=== PATIENT | male | born 1995 | race Caucasian/White ===

== ENCOUNTER 2016-05-10 23:03 | Emergency (ER) | payer MEDICAID | END 2016-05-10 23:25 | disposition home or self-care (01) | LOC: D.ER 23:03 | DX: F41.9 Anxiety disorder, unspecified (principal) ==

== ENCOUNTER 2016-07-19 13:41 | Emergency (ER) | payer MEDICAID | END 2016-07-19 14:36 | disposition home or self-care (01) | LOC: D.ER 13:41 | DX: M54.9 Dorsalgia, unspecified (principal); G89.29 Other chronic pain; F17.200 Nicotine dependence, unspecified, uncomplicated ==

== ENCOUNTER 2018-09-06 16:24 | Emergency (ER) | payer MEDICAID ==
[~2018-09-06] VITALS: Ht 180.3 cm; Wt 110.9 kg
[2018-09-06 16:36] VITALS: Ht 180.3 cm; Wt 110.9 kg
[2018-09-06] MEDS ORDERED: VIBRAMYCIN 100100 MG PO (19:32)
[2018-09-06] MEDS ORDERED: TORADOL10 MG PO (19:32)
[2018-09-06 19:52] VITALS: BP 139/74
== END 2018-09-06 19:52 | disposition home or self-care (01) ==
LOC: D.ER 16:24
DX: L02.414 Cutaneous abscess of left upper limb (principal)

== ENCOUNTER 2018-09-08 16:44 | Inpatient (IN) | payer MEDICAID ==
[~2018-09-08] VITALS: Ht 180.3 cm; Wt 110.5 kg
[~2018-09-08 16:44] MED LIST: TORADOL10 MG PO; VIBRAMYCIN 100100 MG PO
[2018-09-08 22:07] VITALS: BP 152/80
[2018-09-08 22:15] LABS: BASOPHILS 0.1 % (0-2); EOSINOPHILS 1.3 % (0-7); HEMATOCRIT 42.1 % (42.0-54.0); HEMOGLOBIN 15.1 g/dL (13.5-17.5); IMMATURE GRANULOCYTES 0.2 % (0-5); MCH 31.9 pg (26.0-34.0); MCHC 35.9 g/dL (31.0-37.0); MCV 88.8 fL (80.0-100.0); MEAN PLATELET VOLUME 11.1 fL (7.4-10.4); MONOCYTES 7.9 % (2-11); NEUTROPHILS 73.5 % (40-80); PLATELET COUNT 196 10x3/uL (130-400); RBC 4.74 10x6/uL (4.20-6.10); RDW 12.3 % (11.5-14.5); WBC 10.9 10x3/uL (4.8-10.8)
[2018-09-08 22:29] LABS: CALC OSMOLALITY 278 mosm/kg (275-300); CALCIUM 9.1 mg/dL (8.5-10.1); CARBON DIOXIDE 28.6 mmol/L (21.0-32.0); CHLORIDE - SERUM 104 mmol/L (98-107); CREATININE - SERUM 0.8 mg/dL (0.6-1.3); GLUCOSE 83 mg/dL (74-106); POTASSIUM - SERUM 4.1 mmol/L (3.5-5.1); SODIUM 140 mmol/L (136-145); UREA NITROGEN 15 mg/dL (7-18); eGFR NON AFRICAN AMERICAN > 90 mL/min (90-120)
--- NOTE | 2018-09-08 23:15 | NUR ---
PT ARRIVED TO [place] WITH HOSPITAL STAFF. PT ALERT AND ORIENTED.
[2018-09-09] VITALS (7 sets, daily range): BP systolic 105–173; BP diastolic 53–94; Ht 180.3 cm; Wt 110.5 kg
--- NOTE | 2018-09-09 00:30 | NUR ---
PT HAS SMALL DRAINAGED FROM LEFT FOREARM, 4X4 APPLIED TO DRAINAGED AREA.
--- NOTE | 2018-09-09 02:43 | NUR ---
REST IN BED. EYE CLOSE. CALL LIGHT IN REACH.
--- NOTE | 2018-09-09 09:00 | NUR ---
ASSESSMENT PER FLOW SHEET. PT IS WITHOUT DISTRESS.MONITOR FOR NEEDS
--- NOTE | 2018-09-09 09:15 | NUR ---
IV RIGHT UPPER ARM HURTING AND PT WANTED IT MOVED.IV DCD WITH CATH TIP INTACT.IV RESITED TO RIGHT HAND X1 STICK,20G USING ASEPTIC TECH.
--- NOTE | 2018-09-09 18:55 | NUR ---
REMAINS WITHOUT CHANGE.CONT PLAN OF CARE
--- NOTE | 2018-09-09 19:30 | NUR ---
SUPINE IN BED, A&O X 4. REPORTS MILD PAIN, BUT DENIES NEED FOR PAIN MEDICATION. DRESSING TO LEFT UPPER FOREARM C/D/I. PT IS AMBULATORY. WILL CONTINUE TO MONITOR.
[2018-09-10 00:58] VITALS: BP 146/59
--- NOTE | 2018-09-10 03:27 | NUR ---
I have reviewed this patient and I concur with the Shift Assessment completed by the Licensed Practical Nurse today this shift.
[2018-09-10 04:54] VITALS: BP 140/84
[2018-09-10 06:31] LABS: BASOPHILS 0.1 % (0-2); HEMATOCRIT 40.7 % (42.0-54.0); HEMOGLOBIN 14.2 g/dL (13.5-17.5); IMMATURE GRANULOCYTES 0.3 % (0-5); LYMPHOCYTES 33.8 % (15-50); MCH 31.1 pg (26.0-34.0); MCHC 34.9 g/dL (31.0-37.0); MCV 89.3 fL (80.0-100.0); MEAN PLATELET VOLUME 11.5 fL (7.4-10.4); MONOCYTES 9.1 % (2-11); NEUTROPHILS 52.7 % (40-80); PLATELET COUNT 167 10x3/uL (130-400); RBC 4.56 10x6/uL (4.20-6.10); RDW 12.3 % (11.5-14.5)
[2018-09-10 06:42] LABS: WBC 6.7 10x3/uL (4.8-10.8)
[2018-09-10 06:59] LABS: CALC OSMOLALITY 279 mosm/kg (275-300); CALCIUM 8.4 mg/dL (8.5-10.1); CARBON DIOXIDE 26.8 mmol/L (21.0-32.0); CHLORIDE - SERUM 105 mmol/L (98-107); GLUCOSE 101 mg/dL (74-106); POTASSIUM - SERUM 3.6 mmol/L (3.5-5.1); SODIUM 140 mmol/L (136-145); UREA NITROGEN 14 mg/dL (7-18); eGFR NON AFRICAN AMERICAN > 90 mL/min (90-120)
--- NOTE | 2018-09-10 08:50 | HP ---
PATIENT: AJ HERNANDES MEDICAL RECORD: [id number] ACCOUNT: [id number] LOCATION:[facility] [id number] : [birth year] ADMISSION DATE: 09/08/18 PCP: No PCP HISTORY AND PHYSICAL EXAMINATION DATE OF ADMISSION: 09/08/2018 CHIEF COMPLAINT: Pain in arm. HISTORY: This is a 23-year-old white male who came to [place] ED on September 06 for area of cellulitis and abscess on his left arm. He had an I&D done then and states only dark blood came out. The wound was packed. He was started on doxycycline and Toradol. He presented back to the ED on September 08 for increased pain and swelling. The packing was removed. He could not straighten his elbow out. The patient denies any fever or chills. No nausea or vomiting. The patient states he was recently in [place], [place], visiting friends and came home about 3 days before he presented to [facility] on September 06. Due to increased pain and the wound not improving, he is admitted for failed outpatient treatment. PAST MEDICAL HISTORY: Unremarkable. PAST SURGICAL HISTORY: None. HOME MEDICATIONS: Only doxycycline and Toradol. ALLERGIES: None known. SOCIAL HISTORY: He lives with significant other. HABITS: He admits to some marijuana use. Denies alcohol or any other drugs. FAMILY HISTORY: Remote heart disease. REVIEW OF SYSTEMS: GENERAL: No major weight changes. HEENT: No particular sinus or allergy problems. RESPIRATORY: No diagnosis of asthma or emphysema. CARDIAC: No chest pain or palpitations. GASTROINTESTINAL: No diarrhea, constipation, or heartburn. GENITOURINARY: No significant problems there. MUSCULOSKELETAL: No significant joint aches and pains. PSYCHIATRIC: Denies depression or melancholia. PHYSICAL EXAMINATION: VITAL SIGNS: Temperature 98.2, pulse 58, respirations 18, and blood pressure 105/53. GENERAL: He is awake and alert. He does not appear in distress. EXTREMITIES: His left forearm has a bandage over wound near the elbow area. This bandage was removed, showing generalized swelling. There is some mild cellulitis. There is some induration, but there is no purulence or any drainage from the wound opening. He moves his fingers without difficulty. He has pain when he tries to extend at the elbow. LABORATORIES: CBC with white count of 10,900, hemoglobin 15.1, and hematocrit HISTORY AND PHYSICAL [id number] AJ HERNANDES 42.1. Basic metabolic panel is all okay. ASSESSMENT: Abscess, left forearm, with surrounding cellulitis. PLAN: Vancomycin has been started. We will add Rosalia with the news that he had been to [facility]. Other tests and procedures as warranted. TRANSINT:[id number] Voice Confirmation ID: [id number] DOCUMENT ID: [id number] EVANS STRONG MD at 0850 CC: [id number] DICTATION DATE: 09/09/18 170 HARNESS FITTER: 09/09/18 1817 ADM IN [facility] [address] [id number]
[2018-09-10 08:58] VITALS: BP 149/69
[2018-09-10 12:49] VITALS: BP 147/72
[2018-09-10 15:58] VITALS: BP 152/64
[2018-09-10 20:49] VITALS: BP 153/72
--- NOTE | 2018-09-10 22:00 | NUR ---
PT OUT OF SHOWER, DENIES PAIN. DRESSING TO LEFT FOREARM CHANGED. WILL CONTINUE TO MONITOR.
[2018-09-11 00:39] VITALS: BP 140/64
--- NOTE | 2018-09-11 04:33 | NUR ---
I have reviewed this patient and I concur with the Shift Assessment completed by the Licensed Practical Nurse today this shift.
[2018-09-11 04:54] VITALS: BP 133/56
[2018-09-11 08:22] VITALS: BP 156/60
[2018-09-11 13:15] VITALS: BP 151/68
--- NOTE | 2018-09-11 13:28 | NUR ---
I have reviewed this patient and I concur with the Shift Assessment completed by the Licensed Practical Nurse today this shift.
[2018-09-11] MEDS ORDERED: CLEOCIN HCL300 MG PO (16:40)
[2018-09-11 16:54] VITALS: BP 148/82
--- NOTE | 2018-09-11 18:41 | NUR ---
CHANGED PT DRESSING, WENT OVER DC INSTRUCTIONS AND FOLLOW UP WITH PATIENT, ALL QUESTIONS ANSWERED, PT TAKEN DOWN BY WC
--- NOTE | 2018-09-12 16:50 | MORECARE ---
CASE MANAGEMENT DISCHARGE SUMMARY PATIENT: AJ HERNANDES UNIT: [id number] ADM DATE: 09/08/18 AGE: 23 : [birth year] SEX: M ROOM/BED: D.2226 AUTHOR: SHANTEL CLINE PHYSICIAN: REFERRING PHYSICIAN: EVANS STRONG MD DATE OF SERVICE: 09/12/18 Discharge Plan Patient Name: AJ HERNANDES Facility: [facility]:[place] : 1995 Planned Disposition: Anticipated Discharge Date: Discharge Date: 09/11/2018 Expected LOS: 0 Initial Reviewer: [email or web address] Initial Review Date: 09/12/2018 Generated: 09/12/18 5:49 pm Patient Name: AJ HERNANDES Page [id number] at 1650 All edits/amendments must be made on the electronic document DICTATION DATE: 09/12/181648 RETAIL LOAN OFFICER: PREMA 09/12/181648 RPT#: [id number] DC DATE:09/11/18 STATUS: DIS IN [facility] [address] [place] [address] END OF REPORT
== END 2018-09-11 18:43 | disposition home or self-care (01) | DRG 603 ==
LOC: D.ER 16:44 → D.MS 22:07
PROVIDERS: Emergency Medicine; ADMIT Family Medicine; ATTEND Family Medicine
DX: L02.414 Cutaneous abscess of left upper limb (principal); L03.114 Cellulitis of left upper limb